=== PATIENT | male | born 1970 | race Caucasian/White ===

== ENCOUNTER 2024-03-01 13:28 | Emergency (ER) | payer SELFPAY ==
[2024-03-01] MEDS: Lidocaine 1% 5 ML VIAL INJECT STA (15:11)
== END 2024-03-01 15:33 | disposition home or self-care (01) ==
LOC: MW.ED 13:28
DX: S67.190A Crushing injury of right index finger, initial encounter (principal); Z75.8 Other problems related to medical facilities and other health care; F17.210 Nicotine dependence, cigarettes, uncomplicated; W23.0XXA Caught, crushed, jammed, or pinched between moving objects, initial encounter; Y99.0 Civilian activity done for income or pay; Y92.89 Other specified places as the place of occurrence of the external cause
CPT/HCPCS: 12001; 73140-26-F6; 73140-F6; 99283; J3490